=== PATIENT | female | born 1995 | race Caucasian/White ===

== ENCOUNTER 2022-01-19 16:24 | Emergency (ER) | payer SELFPAY ==
[2022-01-19 16:45] VITALS: BP 131/80; PULSE 87; RESP 18; TEMP 98.3; BMI 26.4
[2022-01-19] MEDS ORDERED: ACETAMINOPHEN 500 MG TABLET (FP) PO ONE (17:28)
[2022-01-19] MEDS ORDERED: ACETAMINOPHEN 325 MG TABLET (FP) ONE (17:34)
[2022-01-19 18:15] LABS: HCG,QUALITATIVE URINE Positive
[2022-01-19 18:16] LABS: URINE APPEARANCE CLEAR; URINE BILIRUBIN NEGATIVE (NEGATIVE); URINE COLOR YELLOW; URINE GLUCOSE (UA) NEGATIVE (NEGATIVE); URINE KETONE NEGATIVE (NEGATIVE); URINE LEUK ESTERASE NEGATIVE (NEGATIVE); URINE NITRITE NEGATIVE (NEGATIVE); URINE PROTEIN NEGATIVE (NEGATIVE); URINE UROBILINOGEN 0.2 mg/dL (0.2-1.0)
[2022-01-19 18:20] LABS: BASO % 0.5 % (0-2.0); EOS % 3.2 % (0-4.5); HEMATOCRIT 37.5 % (32.4-45.2); HEMOGLOBIN 13.2 GM/dL (10.7-15.3); LYMPH % 29.7 % (8-40); MCH 29.6 pg (25.7-33.7); MCHC 35.3 g/dl (32.0-36.0); MEAN CELL VOLUME 83.8 fl (80-96); MEAN PLT VOLUME 6.3 fl (7.5-11.1); MONO % 6.7 % (3.8-10.2); NEUT % 59.9 % (42.8-82.8); PLATELET COUNT 415 10^3/uL (134-434); RBC 4.48 M/mm3 (3.60-5.2); RDW 12.7 % (11.6-15.6); WHITE BLOOD COUNT 9.5 K/mm3 (4.0-10.0)
[2022-01-19 18:39] LABS: CALCIUM 9.4 mg/dL (8.5-10.1)
[2022-01-19 18:41] LABS: BLOOD UREA NITROGEN 13.5 mg/dL (7-18)
[2022-01-19 18:43] LABS: CREATININE 0.7 mg/dL (0.55-1.3)
== END 2022-01-19 23:13 | disposition home or self-care (01) ==
LOC: JER 16:24
DX: O26.891 Other specified pregnancy related conditions, first trimester (principal); R10.9 Unspecified abdominal pain; Z3A.01 Less than 8 weeks gestation of pregnancy
CPT/HCPCS: 36415; 76817-TC; 80048; 81003; 84702; 84703; 85025; 86850; 86900; 86901; 87077; 87086; 99284-25